=== PATIENT | female | born 1995 ===

== ENCOUNTER 2018-02-28 21:48 | Outpatient (CLI) | payer OTHER ==
[2018-02-28] MEDS ORDERED: PRENATAL TABLE1 EAC2 PO (22:22)
[2018-03-01] MEDS ORDERED: CEFADROXIL500 MG PO (13:36)
[2018-03-01] MEDS ORDERED: ATHLETIC FOOT C30 GM TOP (13:38)
[2018-03-01] MEDS ORDERED: PROFERRIN12 MG PO (13:40)
== END 2018-03-01 12:00 | disposition home or self-care (01) ==
LOC: OBS/DEL 21:48
DX: O23.43 Unspecified infection of urinary tract in pregnancy, third trimester (principal); O23.593 Infection of other part of genital tract in pregnancy, third trimester; N76.0 Acute vaginitis; O60.03 Preterm labor without delivery, third trimester; O99.013 Anemia complicating pregnancy, third trimester; O98.813 Other maternal infectious and parasitic diseases complicating pregnancy, third trimester; B37.3 Candidiasis of vulva and vagina; Z34.83 Encounter for supervision of other normal pregnancy, third trimester